=== PATIENT | female | born 1945 | race Caucasian/White ===

== ENCOUNTER 2017-01-05 11:35 | Outpatient (CLI) | payer MEDICARE, OTHER ==
--- NOTE | 2017-01-06 17:35 | Mammography Report ---
DIGITAL SCREENING MAMMOGRAM: 01/05/2017 CLINICAL INDICATION: A 71-year-old with history of benign biopsy for screening. COMPARISON: 10/2014, 05/2013, 06/2010, 06/2009. TECHNIQUE: Routine CC and MLO projections were obtained of the breasts. The breasts again demonstrate heterogeneously dense fibroglandular parenchyma bilaterally. Coarse an d punctate, typically benign calcifications are present. No suspicious masses, clustered microcalcif ications, or regions of architectural distortion are identified. IMPRESSION: BENIGN FINDINGS. RECOMMENDATION: ROUTINE ANNUAL SCREENING UNLESS OTHERWISE CLINICALLY INDICATED. BIRADS CATEGORY: 2, BENIGN FINDINGS. STANDARD QUALIFYING STATEMENTS 1. This examination was reviewed with the aid of Computed-Aided Detection (CAD). 2. A negative or benign imaging report should not delay biopsy if clinically suspicious findings are present. Consider surgical consultation if warranted. More than 5% of cancers are not identified b y imaging. 3. Dense breasts may obscure an underlying neoplasm. JOB #: [id number] EXT JOB #:[id number]
== END 2017-01-05 11:36 | disposition home or self-care (01) ==
LOC: DI.S 11:35
PROVIDERS: ATTEND Physician Assistant
DX: Z12.31 Encounter for screening mammogram for malignant neoplasm of breast (principal)
CPT/HCPCS: 77067

== ENCOUNTER 2017-08-03 12:29 | Outpatient (CLI) | payer MEDICARE | END 2017-08-03 12:30 | disposition home or self-care (01) | LOC: DI 12:29 | PROVIDERS: ATTEND Physician Assistant | DX: R55 Syncope and collapse (principal) | CPT/HCPCS: 93306 ==

== ENCOUNTER 2017-08-04 16:38 | Outpatient (CLI) | payer MEDICARE ==
--- NOTE | 2017-08-04 20:19 | Ultrasound Report ---
Procedure Date: 08/04/2017 Accession Number: [id number] / [id number] Procedure: US - Carotid Doppler Complete CPT Code: FULL RESULT: EXAM: BILATERAL CAROTID AND VERTEBRAL ARTERY DUPLEX DOPPLER ULTRASOUND. EXAM DATE: 08/04/2017 06:35 PM CLINICAL HISTORY: Syncope. COMPARISON: None. TECHNIQUE: Grayscale imaging, color Doppler, and duplex spectral Doppler were used to evaluate the carotid and vertebral arteries bilaterally. Static images were obtained. FINDINGS: No significant plaque is identified in the right or left common or internal carotid arteries. Normal antegrade flow is present in bilateral vertebral arteries. VELOCITIES (cm/sec): Right: CCA Prox: PSV 86 cm/sec. CCA Dist: PSV 98 cm/sec, EDV 22 cm/sec. ICA Prox: PSV 85 cm/sec, EDV 19 cm/sec, ICA/CCA ratio .86. ICA Mid: PSV 84 cm/sec, EDV 18 cm/sec, ICA/CCA ratio .85. ICA Dist: PSV 57 cm/sec, EDV 15 cm/sec, ICA/CCA ratio .58. ECA: PSV 58 cm/sec. RT Bulb: PSV 81 cm/sec, EDV 22 cm/sec, ICA/CCA ratio .82. RVA flow direction: 70Antegrade. Left: CCA Prox: PSV 95 cm/sec. CCA Dist: PSV 91 cm/sec, EDV 23 cm/sec. ICA Prox: PSV 57 cm/sec, EDV 19 cm/sec, ICA/CCA ratio .62. ICA Mid: PSV 86 cm/sec, EDV 29 cm/sec, ICA/CCA ratio .94. ICA Dist: PSV 86 cm/sec, EDV 35 cm/sec, ICA/CCA ratio .94. ECA: PSV 81 cm/sec. LT Bulb: PSV 56 cm/sec, EDV 14 cm/sec, ICA/CCA ratio .61. LVA flow direction: 49Antegrade. ICA diameter stenosis: Right: <50% by velocity and <70% by NASCET criteria. Left: <50% by velocity and <70% by NASCET criteria. IMPRESSION: 1. No significant bilateral carotid artery plaquing. 2. In the right carotid artery there are no elevated carotid artery velocities to suggest hemodynamically significant stenosis. 3. In the left carotid artery there are no elevated carotid artery velocities to suggest hemodynamically significant stenosis. 4. Normal antegrade flow is present in bilateral vertebral arteries. General Recommendations: Stenosis =50% ICA - Follow-up ultrasound 6-12 months Stenosis <50% ICA - High Risk Patient with plaque - Follow-up ultrasound 1-2 years Normal Study but High Risk Patient - Follow-up ultrasound 3-5 years Management recommendations and diagnostic criteria are based on current IAC endorsed standards in Carotid Artery Stenosis: Grayscale and Doppler Ultrasound Diagnosis. Validated velocity measurements with angiographic measurements and velocity criteria are extrapolated from diameter data as defined by the Society of Radiologists in Ultrasound Consensus Conference Radiology 2003; 229;340-346. RADIA
== END 2017-08-04 16:39 | disposition home or self-care (01) ==
LOC: DI 16:38
PROVIDERS: ATTEND Physician Assistant
DX: R55 Syncope and collapse (principal)
CPT/HCPCS: 93880

== ENCOUNTER 2018-01-01 09:10 | Day surgery (SDC) | payer MEDICARE ==
[2018-01-01] MEDS ORDERED: LACTATED RINGERS 1,000 ML IV ONE (10:00)
[2018-01-01] MEDS ORDERED: LIDO GARGLE 30 ML BOTTLE ONE (10:28)
[2018-01-01] MEDS ORDERED: fentaNYL 100 MCG/2 ML VIAL IVP ONE (10:34)
[2018-01-01] MEDS ORDERED: MIDAZOLAM 2 MG/2 ML VIAL IVP ONE (10:34)
[2018-01-01] MEDS ORDERED: LIDO GARGLE 30 ML BOTTLE PO ONE (10:38)
[2018-01-01] MEDS ORDERED: BENZOCAINE/TETRACAINE/BUTAMBEN 20 GM TOP ONE (10:48)
[2018-01-01 12:31] VITALS: BP 122/65
== END 2018-01-01 09:11 | disposition home or self-care (01) ==
LOC: SDS 09:10
PROVIDERS: ATTEND Surgery
PROC: 0DJ08ZZ Inspection of Upper Intestinal Tract, Via Natural or Artificial Opening Endoscopic (ICD-10-PCS; principal; 2018-01-01 10:30)
DX: K21.9 Gastro-esophageal reflux disease without esophagitis (principal); R10.13 Epigastric pain; K44.9 Diaphragmatic hernia without obstruction or gangrene; M47.9 Spondylosis, unspecified; Z79.1 Long term (current) use of non-steroidal anti-inflammatories (NSAID)
CPT/HCPCS: 43235; A9270; J7120

== ENCOUNTER 2018-12-17 09:37 | Outpatient (CLI) | payer MEDICARE ==
--- NOTE | 2018-12-17 10:59 | Mammography Report ---
Reason: SCREENING MAMMO Procedure Date: 12/17/2018 Accession Number: [id number] / [id number] Procedure: DAWN - Screening Mammo w/Pool CPT Code: Final Report FULL RESULT: EXAM: Screening Mammo w/Pool DATE: 12/17/2018 10:29 AM CLINICAL HISTORY: Routine screening. No reported personal or family history of breast cancer. TECHNIQUE: (B) - Bilateral CC and MLO views were obtained. COMPARISON: 01/05/2017 through 07/01/2009. PARENCHYMAL PATTERN: (D) - The breasts demonstrate heterogeneously dense fibroglandular parenchyma bilaterally. FINDINGS: Bilateral breasts: There are no suspicious masses, calcifications, or areas of distortion. IMPRESSION: Negative examination. BI-RADS category 1. RECOMMENDATION: (ANNUAL) - Recommend routine annual screening mammography. BI-RADS CATEGORY: (1) - Negative. STANDARD QUALIFYING STATEMENTS: 1. This examination was not reviewed with the aid of Computer-Aided Detection (CAD). 2. A negative or benign imaging report should not preclude biopsy if clinically suspicious findings are present. 3. Dense breasts may obscure an underlying neoplasm. 4. This examination was reviewed with the aid of 3D breast imaging (tomosynthesis).
== END 2018-12-17 09:38 | disposition home or self-care (01) ==
LOC: DI 09:37
DX: Z12.31 Encounter for screening mammogram for malignant neoplasm of breast (principal)
CPT/HCPCS: 77063; 77067

== ENCOUNTER 2020-08-07 11:41 | Outpatient (CLI) | payer MEDICARE ==
--- NOTE | 2020-08-07 12:34 | CT Report ---
PROCEDURE: Sinuses INDICATIONS: CHRONIC PANSINUSITIS TECHNIQUE: Noncontrast 3.0 mm axial images acquired from the frontal sinuses to the mid-sella, with coronal and sagittal reformats. For radiation dose reduction, the following was used: automated exposure control , adjustment of mA and/or kV according to patient size. COMPARISON: None. FINDINGS: Image quality: Excellent. Maxillary Sinuses: Complete obstruction of the left maxillary sinus sinus with findings of sinus wal l thickening and sclerosis. Left maxillary sinus outflow tract is obstructed. Right maxillary sinus a nd right maxillary sinus outflow tract are clear. Ethmoid Air Cells: Chronic left anterior ethmoid air cell opacification with bony thickening and scle rosis. Ethmoid air cells otherwise clear. Sphenoid Sinuses: No steroid sinus mucosal thickening or fluid level. Sphenoethmoid recesses are brittnee r. No sphenoid bony changes. Frontal Sinuses: Left frontal sinus mucosal thickening inferiorly near the frontoethmoid recess, with associated chronic bony changes.. Right frontal sinus is clear. Ostiomeatal Complexes: Ostiomeatal complexes are patent. No Clair cells. Miscellaneous: Visualized intra-orbital contents are normal. No luis armando bullosa. No nasal septal de viation. IMPRESSION: Left ostiomeatal unit opacification and obstruction with bony features indicating chronic sinusitis. Reviewed by: Reuben Easely MD on 08/07/2020 12:32 PM PDT Approved by: Reuben Easley MD on 08/07/2020 12:32 PM PDT Station ID: [id number]
== END 2020-08-07 11:42 | disposition home or self-care (01) ==
LOC: DI 11:41
PROVIDERS: ATTEND Otolaryngology
DX: J32.4 Chronic pansinusitis (principal); J34.89 Other specified disorders of nose and nasal sinuses; R09.82 Postnasal drip

== ENCOUNTER 2020-10-06 11:26 | Outpatient (CLI) | payer MEDICARE ==
--- NOTE | 2020-10-06 12:12 | CT Report ---
PROCEDURE: Sinuses INDICATIONS: CHRONIC PANSINUSITIS TECHNIQUE: Noncontrast 3.0 mm axial images acquired from the frontal sinuses to the mid-sella, with coronal and sagittal reformats. For radiation dose reduction, the following was used: automated exposure control , adjustment of mA and/or kV according to patient size. COMPARISON: [id number] FINDINGS: Image quality: Excellent. Maxillary Sinuses: The right maxillary sinus is unremarkable. The left maxillary sinus is completely opacified. There is dilatation of the medial wall of the left maxillary sinus. Ethmoid Air Cells: Prominent mucosal thickening can be seen involving the anterior left ethmoid air c ells, with mild demineralization. The right ethmoid air cells appear clear. Sphenoid Sinuses: No bony remodeling or destruction. Sinuses are clear. Frontal Sinuses: There is moderate mucosal thickening seen involving the left frontal sinus. Ostiomeatal Complexes: The left ostiomeatal complex is again seen to be completely opacified. The un cinate process is demineralized. On the right, there is narrowing of the osteochondral complex seen, with Clair cells. Miscellaneous: Visualized intra-orbital contents are normal. There is a right-sided luis armando bullosa. There is mild rightward nasal septal deviation. IMPRESSION: Study similar to prior, with prominent left sinus disease, which is centered on the left ostiomeatal complex. There is a bony demineralization are seen, which are consistent with chronic sinusitis. Constitutionally narrowed right ostiomeatal complex. Reviewed by: Adam Hoffman MD on 10/06/2020 11:11 AM HERMELINDA Approved by: Adam Hoffman MD on 10/06/2020 11:11 AM HERMELINDA Station ID: [id number]
== END 2020-10-06 11:27 | disposition home or self-care (01) ==
LOC: DI 11:26
PROVIDERS: ATTEND Otolaryngology
DX: J32.4 Chronic pansinusitis (principal); J34.89 Other specified disorders of nose and nasal sinuses; R09.82 Postnasal drip

== ENCOUNTER 2021-01-06 08:46 | Outpatient (CLI) | payer MEDICARE | END 2021-01-06 08:47 | disposition home or self-care (01) | LOC: DI 08:46 | PROVIDERS: ATTEND Registered Nurse | DX: R01.1 Cardiac murmur, unspecified (principal); I51.7 Cardiomegaly; I35.8 Other nonrheumatic aortic valve disorders; I77.810 Thoracic aortic ectasia | CPT/HCPCS: 93306 ==

== ENCOUNTER 2022-06-09 10:42 | Outpatient (CLI) | payer MEDICARE ==
[2022-06-09 14:32] LABS: BASOPHILS # (AUTO) 0.1 10^3/uL (0.0-0.1); BASOPHILS % (AUTO) 1.1 %; EOSINOPHILS # (AUTO) 0.3 10^3/uL (0.0-0.7); EOSINOPHILS % (AUTO) 3.6 %; LYMPHOCYTES # (AUTO) 2.6 10^3/uL (1.5-3.5); MEAN CORPUSCULAR HEMOGLOBIN 29.4 pg (27.0-31.0); MEAN CORPUSCULAR HGB CONC 32.6 g/dL (32.0-36.0); MEAN CORPUSCULAR VOLUME 90.1 fL (81.0-99.0); MEAN PLATELET VOLUME 9.1 fL (7.9-10.8); MONOCYTES # (AUTO) 0.5 10^3/uL (0.0-1.0); NEUTROPHILS # (AUTO) 4.4 10^3/uL (1.5-6.6); NEUTROPHILS % (AUTO) 56.2 %; PLT - PLATELET COUNT 291 10^3/uL (130-450); RED BLOOD COUNT 4.77 10^6/uL (4.20-5.40); RED CELL DISTRIBUTION WIDTH 12.2 % (12.0-15.0); WHITE BLOOD COUNT 7.9 x10^3/uL (4.8-10.8)
[2022-06-09 15:02] LABS: ALBUMIN 4.2 g/dL (3.2-5.5); ALBUMIN/GLOBULIN RATIO 1.3 (1.0-2.2); ALKALINE PHOSPHATASE 94 IU/L (42-121); ALT ALANINE AMINOTRANSFERASE 14 IU/L (10-60); AST ASPARTATE AMINOTRANSFERASE 19 IU/L (10-42); BILIRUBIN,TOTAL 0.6 mg/dL (0.2-1.0); BUN - BLOOD UREA NITROGEN 15 mg/dL (6-20); CALCIUM 9.5 mg/dL (8.5-10.3); CARBON DIOXIDE - CO2 30 mmol/L (21-32); CHLORIDE 106 mmol/L (101-111); CHOLESTEROL 293 mg/dL; CREATININE 0.7 mg/dL (0.4-1.0); GFR - MDRD 81 (>89); GLUCOSE 117 mg/dL (70-100); HDL CHOLESTEROL 99 mg/dL; LDL CHOLESTEROL,CALCULATED 178 mg/dL; LDL/HDL RATIO 1.8 (<4.4); POTASSIUM 4.2 mmol/L (3.5-5.0); SODIUM 140 mmol/L (135-145); TOTAL PROTEIN 7.5 g/dL (6.7-8.2); TRIGLYCERIDES 81 mg/dL; VLDL CHOLESTEROL 16 mg/dL
== END 2022-06-09 10:43 | disposition home or self-care (01) ==
LOC: LAB.S 10:42
PROVIDERS: ATTEND Internal Medicine
DX: E78.5 Hyperlipidemia, unspecified (principal); Z13.9 Encounter for screening, unspecified
CPT/HCPCS: 36415; 80053; 80061; 83721; 85025

== ENCOUNTER 2022-12-27 07:00 | Outpatient (CLI) | payer MEDICARE ==
[2022-12-27 16:38] LABS: H. PYLORIS ANTIGEN STL NEGATIVE (Negative)
== END 2022-12-27 23:59 | disposition home or self-care (01) ==
LOC: LAB.S 07:00
PROVIDERS: ATTEND Physician Assistant Medical
DX: R19.7 Diarrhea, unspecified (principal)
CPT/HCPCS: 87045; 87046; 87177; 87209; 87329; 87338; 87427; 87493

== ENCOUNTER 2023-01-07 08:00 | Outpatient (CLI) | payer MEDICARE ==
[2023-01-11 18:10] LABS: GIARDIA LAMBLIA AG EIA Negative (Negative)
== END 2023-01-07 23:59 | disposition home or self-care (01) ==
LOC: LAB.R 08:00
PROVIDERS: ATTEND Physician Assistant Medical
DX: R19.7 Diarrhea, unspecified (principal)
CPT/HCPCS: 87045; 87046; 87177; 87209; 87329; 87427

== ENCOUNTER 2023-06-03 08:00 | Outpatient (CLI) | payer MEDICARE ==
[2023-06-03 20:05] LABS: BILIRUBIN,URINE NEGATIVE (NEGATIVE); GLUCOSE, URINE (UA) NEGATIVE (NEGATIVE); KETONES,URINE (UA) 15 mg/dL (NEGATIVE); LEUKOCYTE ESTERASE, URINE TRACE (NEGATIVE); NITRITE,URINE NEGATIVE (NEGATIVE); OCCULT BLOOD,URINE TRACE-INTA (NEGATIVE); PROTEIN,URINE NEGATIVE (NEGATIVE); UROBILINOGEN,URINE 0.2 (NORMAL) E.U./dL (NORMAL)
[2023-06-03 20:06] LABS: CLARITY,URINE TURBID (CLEAR)
[2023-06-03 20:25] LABS: BACTERIA,URINE Few /HPF (None Seen); RBC,URINE 0-5 /HPF (0-5); SQUAMOUS EPITHELIAL CELL,UR FEW Squamous (<= Few); WBC,URINE 0-3 /HPF (0-5)
[2023-06-03 20:26] LABS: AMORPHOUS SEDIMENT,UR Marked /LPF
== END 2023-06-03 23:59 | disposition home or self-care (01) ==
LOC: LAB.N 08:00
PROVIDERS: ATTEND Physician Assistant Medical
DX: R10.9 Unspecified abdominal pain (principal)
CPT/HCPCS: 81001; 87086